=== PATIENT | female | born 1950 | race Caucasian/White ===

== ENCOUNTER 2024-03-09 14:52 | Day surgery (SDC) | payer MEDICARE, OTHER ==
[2024-03-09] MEDS ORDERED: Sodium Chloride 0.9(Preservative Free) 10 ML IJ ONE (14:53)
[2024-03-09] MEDS ORDERED: Decadron 4 MG INJ IV ONE (14:53)
[2024-03-09] MEDS ORDERED: LIDOCAINE HCL 1% AMPUL 5 ML IJ ONE (14:53)
--- NOTE | 2024-03-09 18:32 | XRAY ---
Indication: Cervical PADILLA. Intraoperative fluoroscopy provided for 25 seconds. 3 digital spot images submitted for interpretation demonstrates posterior needle tip projecting posterior to cervical thoracic junction. Small amount of contrast injected for needle tip placement. Correlate with intraoperative findings/report.
--- NOTE | 2024-03-10 09:21 | XRAY ---
25 seconds of fluoroscopy was used in surgery for a cervical PADILLA/
== END 2024-03-09 16:30 | disposition home or self-care (01) ==
LOC: SDC-PAIN 14:52
PROVIDERS: ATTEND Psychiatry & Neurology Pain Medicine
DX: M54.12 Radiculopathy, cervical region (principal); E11.9 Type 2 diabetes mellitus without complications
CPT/HCPCS: 62321; 72040; 77003; 82947; J1100; Q9966